=== PATIENT | male | born 1955 | race Caucasian/White ===

== ENCOUNTER 2017-01-11 12:07 | Emergency (ER) | payer MEDICARE | END 2017-01-11 12:36 | disposition home or self-care (01) | LOC: ER 12:07 | DX: H65.93 Unspecified nonsuppurative otitis media, bilateral (principal); F17.210 Nicotine dependence, cigarettes, uncomplicated; Z79.899 Other long term (current) drug therapy | CPT/HCPCS: 99282; 99283 ==

== ENCOUNTER 2017-03-23 08:39 | Emergency (ER) | payer MEDICARE | END 2017-03-23 09:26 | disposition home or self-care (01) | LOC: ER 08:39 | PROC: 3E0234Z Introduction of Serum, Toxoid and Vaccine into Muscle, Percutaneous Approach (ICD-10-PCS; principal; 2017-03-23) | DX: S31.030A Puncture wound without foreign body of lower back and pelvis without penetration into retroperitoneum, initial encounter (principal); S41.131A Puncture wound without foreign body of right upper arm, initial encounter; W45.0XXA Nail entering through skin, initial encounter; W17.89XA Other fall from one level to another, initial encounter; Z23 Encounter for immunization | CPT/HCPCS: 90471; 90715; 99070; 99282-25; 99283 ==